=== PATIENT | female | born 1940 | race Caucasian/White ===

== ENCOUNTER 2024-10-13 12:00 | Emergency (ER) | payer MEDICARE, OTHER, SELFPAY ==
[2024-10-13 12:03] VITALS: BP 119/57
[2024-10-13 12:26] LABS: % Basophils 0.2 % (0-2); % Eosinophils 0.1 % (0-6); % Immature Granulocytes 0.3 % (0-0.5); % Lymphocytes 7.4 % (20.5-51.1); % Monocytes 6.9 % (1.7-9.3); % Neutrophils 85.1 % (42.2-75.2); Absolute Lymphocytes 1.1 10^3/uL (1.2-3.4); Absolute Monocytes 1.1 10^3/uL (0.1-0.6); Absolute Neutrophils 13.2 10^3/uL (1.4-6.5); Hematocrit 41.8 % (37.0-47.0); Hemoglobin 14.3 g/dL (12.0-16.0); Mean Corp Hgb Conc. 34.2 g/dL (33.0-37.0); Mean Corpuscular Hgb 31.6 pg (27.0-31.0); Mean Corpuscular Volume 92.5 fL (81.0-99.0); Nucleated Red Blood Cells % 0 %; Platelet Count 398 10^3/uL (130-400); Red Blood Cell Count 4.52 10^6/uL (4.20-5.40); Red Cell Dist. Width 14.2 % (11.5-14.5); White Blood Cell Count 15.5 10^3/uL (4.8-10.8)
[2024-10-13 12:31] LABS: INR 1.01; PT 13.6 Sec (11.4-14.6)
[2024-10-13 12:32] LABS: APTT 29.5 Sec (23.4-35.0)
[2024-10-13 12:33] LABS: ALT (SGPT) 18 U/L (0-35); AST (SGOT) 23 U/L (14-36); Albumin 4.4 g/dl (3.5-5.0); Alkaline Phosphatase 120 U/L (38-126); Blood Urea Nitrogen 32 mg/dl (7-17); Calcium 10.6 mg/dl (8.4-10.2); Carbon Dioxide 28 mmol/L (22-30); Chloride 104 mmol/L (98-107); Glucose 153 mg/dl (70-99); Potassium 4.3 mmol/L (3.5-5.1); Sodium 140 mmol/L (135-145); Total Bilirubin 1.2 mg/dl (0.2-1.3); Total Protein 6.9 g/dl (6.3-8.2); eGFR > 60.00
--- NOTE | 2024-10-13 13:59 | ED.GENMED ---
History of Present Illness
General
Chief Complaint: Rectal Bleeding
Source: patient
Exam Limitations: none
Time Seen by Provider: 10/13/24 13:16
History of Present Illness
History of Present Illness:
84-year-old female presents complaining of lower abdominal pain followed by constipation and straining and subsequently has had bright red blood per rectum since last evening. She has history of von Willebrand's. She is not anticoagulated. She
notes she is a been bleeding in between bowel movements. She feels slightly lightheaded and tired. No fever. Prior abdominal surgical history includes appendectomy. No other complaints at this time
Phy Exam
Physical Exam
Physical Exam:
General: Well-appearing female no acute respiratory distress
HEENT: Normocephalic atraumatic
Heart: Regular rate and rhythm
Lungs: Clear no wheeze
Abdomen is soft tender to the lower abdomen no guarding or rebound
Rectal exam: This was performed with female nurse Roxanna in the room as a loop tacker. There is no obvious hemorrhoids or fissures. The stool is red in color heme positive
Course
Orders/Labs/Results
Orders:
Orders
10/13/24 12:14
Type And Crossmatch [Type+Screen] Urgent
Complete Blood Count/With Diff Urgent
Comprehensive Metabolic Panel Urgent
PTT Urgent
Prothrombin Time Urgent
10/13/24 13:47
CT Abd/pelvis W Iv Cont Urgent
Comment:
Reason For Exam: rlq pain, constipation, bleeding
10/13/24 13:50
Diphenhydramine [Benadryl] 50 mg IV NOW STA
Hydrocortisone Sod Succinate [Solu-Cortef] 200 mg IV NOW STA
Abnormal Lab Results
10/13/24
12:14
WBC 15.5 H 10^3/uL
(4.8-10.8)
MCH 31.6 H pg
(27.0-31.0)
Absolute Neuts (auto) 13.2 H 10^3/uL
(1.4-6.5)
Absolute Lymphs (auto) 1.1 L 10^3/uL
(1.2-3.4)
Absolute Monos (auto) 1.1 H 10^3/uL
(0.1-0.6)
Neutrophils % 85.1 H %
(42.2-75.2)
Lymphocytes % 7.4 L %
(20.5-51.1)
BUN 32 H mg/dl
(7-17)
Glucose 153 H mg/dl
(70-99)
Calcium 10.6 H mg/dl
(8.4-10.2)
10/13/24 12:14
10/13/24 12:14
Vital Signs
Initial and Last Documented VS:
Initial Vital Signs
Temp Pulse Resp BP Pulse Ox
98.2 F 94 18 119/57 98
10/13/24 12:03 10/13/24 12:03 10/13/24 12:03 10/13/24 12:03 10/13/24 12:03
Last Documented Vital Signs
Temp Pulse Resp BP Pulse Ox
98.2 F 94 18 119/57 96
10/13/24 12:03 10/13/24 12:03 10/13/24 12:03 10/13/24 12:03 10/13/24 12:54
MDM/Problems Addressed
Differential Diagnosis Includes:
Bright red blood per rectum with lower abdominal pain and constipation. Consider lower GI bleeding diverticular versus hemorrhoidal versus fissure. Given blood loss consider anemia. She is tender on exam to the abdomen will order CT of the abdomen
*Critical Care Note
Total Time (30-74mins, 75-104mins- exclusive of procedures): Not Applicable
Update Note
Update Note:
CT demonstrates severe colitis of the descending colon. Patient has not had any further bowel movements here. Her vital signs remained stable. Hemoglobin is normal. White blood cell count is slightly elevated. No fever here. Had discussion
with patient and [id number] in the room regarding treatment options admission versus go home and antibiotics versus no antibiotics. They wish to go home which I think is reasonable recommend clear liquid diet. A prescription for Augmentin was
provided in the event her symptoms get worse. Return precautions were given otherwise. Will discharge
ED Attending Note
-
Portions of this chart may have been created with voice recognition software.� Occasional wrong word or��sound alike� substitutions may have occurred due to the inherent limitations of voice recognition software.
Discharge Plan
Departure
Patient Disposition: Home (Routine Discharge)
Date of Disposition: 10/13/24
Time of Disposition: 16:29
Patient with high blood pressure during this ER visit?: No
Discharge Problem:
Colitis
Instructions: Colitis
Prescriptions:
New
amoxicillin-pot clavulanate 875-125 mg tablet
1 tab PO BID Qty: 14 0RF
Referrals:
JOSETTE SINGLETON [Other]
Activity Restrictions/Additional Instructions:
Drink plenty clear liquids. Use Tylenol if needed for pain. Please return here for increasing pain fever vomiting or other concerning findings. A prescription for antibiotics was prescribed.
Interventions
Interventions:
*Risk Screen - Suicide Last Done: 10/13/24 12:03
*General Assessment Last Done: 10/13/24 12:03
*Neglect/Abuse Screening Last Done: 10/13/24 12:54
*ED- Fall Risk Assessment Last Done: 10/13/24 12:54
*ED COVID-19 Vaccine History Last Done: 10/13/24 12:54
EA-Knaxxu-Rwzxacouox Assessment Last Done: 10/13/24 12:54
ED- Cardiac Assessment Last Done: 10/13/24 12:54
ED- Pulmonary Assessment Last Done: 10/13/24 12:54
Discharge Date and Time
Print Language: ARMENIAN
[2024-10-13] MEDS: BENADRYL 50 MG IV (14:02)
[2024-10-13] MEDS: SOLU-CORTEF 200 MG IV (14:02)
== END 2024-10-13 17:17 | disposition home or self-care (01) ==
LOC: EMR 12:00
PROVIDERS: EMERGENCY PHYSICIAN Student in an Organized Health Care Education/Training Program
DX: K52.9 Noninfective gastroenteritis and colitis, unspecified (principal); K59.00 Constipation, unspecified; D68.00 Von Willebrand disease, unspecified
CPT/HCPCS: 99284; 96374; 96375; 74177; 80053; 85025; 85610; 85730; 86850; 86900; 86901; Q9967

== ENCOUNTER 2024-10-16 17:54 | Inpatient (IN) | payer MEDICARE, OTHER, SELFPAY ==
[2024-10-16] VITALS (10 sets, daily range): BP systolic 112–184; BP diastolic 60–80; BMI 25.6
[2024-10-16 12:27] LABS: % Basophils 0.3 % (0-2); % Eosinophils 1.2 % (0-6); % Immature Granulocytes 0.2 % (0-0.5); % Lymphocytes 13.8 % (20.5-51.1); % Monocytes 9.8 % (1.7-9.3); % Neutrophils 74.7 % (42.2-75.2); Absolute Eosinophils 0.1 10^3/uL (0-0.7); Absolute Lymphocytes 1.2 10^3/uL (1.2-3.4); Absolute Monocytes 0.9 10^3/uL (0.1-0.6); Absolute Neutrophils 6.7 10^3/uL (1.4-6.5); Hematocrit 40.9 % (37.0-47.0); Hemoglobin 13.7 g/dL (12.0-16.0); Mean Corp Hgb Conc. 33.5 g/dL (33.0-37.0); Mean Corpuscular Hgb 31.3 pg (27.0-31.0); Mean Corpuscular Volume 93.4 fL (81.0-99.0); Mean Platelet Volume 9.2 fL (7.4-10.4); Nucleated Red Blood Cells % 0 %; Platelet Count 370 10^3/uL (130-400); Red Blood Cell Count 4.38 10^6/uL (4.20-5.40); Red Cell Dist. Width 13.7 % (11.5-14.5); White Blood Cell Count 8.9 10^3/uL (4.8-10.8)
[2024-10-16 12:38] LABS: ALT (SGPT) 16 U/L (0-35); AST (SGOT) 19 U/L (14-36); Albumin 4.2 g/dl (3.5-5.0); Alkaline Phosphatase 111 U/L (38-126); Blood Urea Nitrogen 19 mg/dl (7-17); Calcium 10.1 mg/dl (8.4-10.2); Carbon Dioxide 29 mmol/L (22-30); Chloride 106 mmol/L (98-107); Glucose 145 mg/dl (70-99); Potassium 4.1 mmol/L (3.5-5.1); Sodium 141 mmol/L (135-145); Total Bilirubin 0.6 mg/dl (0.2-1.3); Total Protein 6.6 g/dl (6.3-8.2); eGFR > 60.00
[2024-10-16 12:40] LABS: APTT 29.5 Sec (23.4-35.0); INR 1.01; PT 13.8 Sec (11.4-14.6)
--- NOTE | 2024-10-16 15:27 | ED.GENMED ---
History of Present Illness
General
Chief Complaint: Rectal Bleeding
Source: patient, records, family, previous radiology exam and previous hospital records
Exam Limitations: none
Time Seen by Provider: 10/16/24 15:08
Nursing documentation reviewed up to this point in time: agreed with
History of Present Illness
History of Present Illness:
84 female returns with abdominal pain bloody stool seen here few days ago diagnosed with colitis offered admission she preferred to go home given a prescription for antibiotics to take if she had fever she did have fever associated take them she has
von Willebrand's type I nondrinker non-smoker she is visiting from [place] pain is worsened over the past couple days nausea not eating or drinking much,
Past History
Past History
ED Past Medical History: Other (Von Willebrand's type I)
ED Past Surgical History: Appendectomy and Gynecological
Social History
Tobacco: Non-smoker
Alcohol: None
Drug: None
Living: with family
Employment: Retired
Review of Systems
Review of Systems
All Other Systems: Not applicable
Constitutional: Denies fatigue or chills
EENT: Reports no symptoms
Respiratory: Reports no symptoms
Cardiac: Reports no symptoms
ABD/GI: Reports abdominal pain, nausea and bloody stools
: Reports no symptoms
Skin: Reports no symptoms
Neurological: Reports weakness
Phy Exam
Physical Exam
Physical Exam:
Physical Exam
General: 84 female looks uncomfortable but nontoxic
Neck: Dry lips
Heart: s1/s2 regular rate and rhythm, no murmur. equal radial pulses.
Lungs: no acute respiratory distress. clear bilaterally
Abdomen: Tender left greater than right lower
Neuro: alert and oriented. no focal neurological deficits
Skin: no rash
Psychiatric: well kept. interactive and cooperative
Extremities: no edema.
Course
Orders/Labs/Results
Orders:
Orders
10/16/24 12:09
Complete Blood Count/With Diff Urgent
Comprehensive Metabolic Panel Urgent
PTT Urgent
Prothrombin Time Urgent
10/16/24 15:25
STOOL [C difficile Antigen & Toxins] Urgent
ELANA Source: Feces/Stool
Specimen Description:
Stool Culture Urgent
ELANA Source: Feces/Stool
Specimen Description:
0.9% Sodium Chloride 1000 ml [Nss] 1,000 ml IV BOLUS
HYDROmorphone [Dilaudid] 0.5 mg IV NOW STA
Ondansetron Injectable [Zofran] 4 mg IV NOW STA
10/16/24 15:32
Electrocardiogram (*1) Urgent
Reason for Study: Abdominal Pain
EKG- Treatment ONCE
10/16/24 15:37
CT Abd/pelvis Wo Iv Cont Urgent
Comment:
Reason For Exam: pain
10/16/24 16:49
MetroNIDAZOLE 500 MG/100 ML [Flagyl 500 mg] 100 ml IV NOW
Abnormal Lab Results
10/16/24
12:09
MCH 31.3 H pg
(27.0-31.0)
Absolute Neuts (auto) 6.7 H 10^3/uL
(1.4-6.5)
Absolute Monos (auto) 0.9 H 10^3/uL
(0.1-0.6)
Lymphocytes % 13.8 L %
(20.5-51.1)
Monocytes % 9.8 H %
(1.7-9.3)
BUN 19 H mg/dl
(7-17)
Glucose 145 H mg/dl
(70-99)
10/16/24 12:09
10/16/24 12:09
Vital Signs
Initial and Last Documented VS:
Initial Vital Signs
Temp Pulse Resp BP Pulse Ox
98.4 F 82 16 151/61 98
10/16/24 12:01 10/16/24 12:01 10/16/24 12:01 10/16/24 12:01 10/16/24 12:01
Last Documented Vital Signs
Temp Pulse Resp BP Pulse Ox
98.4 F 79 13 160/76 97
10/16/24 12:01 10/16/24 16:45 10/16/24 16:45 10/16/24 16:41 10/16/24 16:45
MDM/Problems Addressed
Differential Diagnosis Includes:
Infectious colitis diverticulitis diverticulosis ischemic colitis perforated bowel
MDM/Problems Addressed:
Abdominal pain
Chronic conditions affecting care:
Von Willebrand
Chronic conditions affecting care: Previous abdomnial surgery
Acute Exacerbation and/or Progression of Chronic Illness:
Von Willebrand
Acute Exacerbation and/or Progression of Chronic Illness: Previous abdomnial surgery
*Radiology
Radiology exam reviewed: radiology read reviewed
*Pulse Oximetry
Patient hypoxic: no
*EKG
Interpreted by ED Provider?: Yes
Interpretation: abnormal
Comparison EKG: no comparison EKG present
Heart Rate: 78
Rate: normal
Ischemia: non-specific ST changes
*Green Chain Operator Interpretation
Rate: normal
Interpretation: normal
Heart Rate: 78
Rhythm: sinus
*Critical Care Note
Total Time (30-74mins, 75-104mins- exclusive of procedures): Not Applicable
Data Reviewed
Review of Other/Old Records Reveals: Labs, Records and Radiology Studies
Source: patient and family
Update Note
Update Note:
Update second visit worsening symptoms, labs recently normal does have von Willebrand's she is elderly, will check stool cultures, repeat her CT low threshold to admit
ED Attending Note
-
Portions of this chart may have been created with voice recognition software.� Occasional wrong word or��sound alike� substitutions may have occurred due to the inherent limitations of voice recognition software.
Discharge Plan
Departure
Patient Disposition: Admit
Date of Disposition: 10/16/24
Time of Disposition: 16:51
Admit to: Med/Surg
Presentation/result/management discussed w/ accepting MD/DO: Hospitalist
Patient with high blood pressure during this ER visit?: No
Condition: Fair
Discharge Problem:
Colitis
Prescriptions:
No Action
amoxicillin-pot clavulanate 875-125 mg tablet
1 tab PO BID Qty: 14 0RF
Interventions
Interventions:
*Risk Screen - Suicide Last Done: 10/16/24 12:01
*General Assessment Last Done: 10/16/24 14:47
*Neglect/Abuse Screening Last Done: 10/16/24 12:01
*ED- Fall Risk Assessment Last Done: 10/16/24 14:37
*ED COVID-19 Vaccine History Last Done: 10/16/24 14:37
EZ-Nmkweu-Iaafcwhfso Assessment Last Done: 10/16/24 14:42
ED- Cardiac Assessment Last Done: 10/16/24 14:41
ED- Pulmonary Assessment Last Done: 10/16/24 14:41
Discharge Date and Time
Print Language: CHILEAN
[2024-10-16] MEDS: ZOFRAN 4 MG IV (16:32)
[2024-10-16] MEDS: NSS 1000 IV (16:32)
[2024-10-16] MEDS: DILAUDID 0.5 MG IV (16:33)
[2024-10-16] MEDS: ZOSYN 50 IV (17:21)
--- NOTE | 2024-10-16 17:36 | HPS.HSE ---
Family Physician
-
Family Physician: PHYSICIAN PRIVATE
Chief Complaint
-
Abdominal pain, bloody stool
History of Present Illness
84-year-old female with past medical history of von Willebrand's disease, hypertension, hyperlipidemia, GERD, hypothyroidism, parathyroidectomy, appendectomy now presenting again for abdominal pain, associated bloody stool. Patient was seen on 10/13
for abdominal pain, diagnosed with colitis and discharged with option of taking antibiotics if spikes temperature gets worse. She never took antibiotics due to no fever. Today abdominal pain continued with notable bloody stool. Hemoglobin
remained stable, white count trending down. Imaging with slightly improved thickening of the wall of the descending colon. Blood pressure 160/76, afebrile, pulse 79. Patient had moderate tenderness to palpation of the lower abdomen.
Medical History
Past Medical History
Past Medical History: Reports Other ( von Willebrand's disease, hypertension, hyperlipidemia, GERD, hypothyroidism, parathyroidectomy, appendectomy)
Additional Past Medical History:
von Willebrand's disease, hypertension, hyperlipidemia, GERD, hypothyroidism, parathyroidectomy, appendectomy
Past Surgical History: Reports Appendectomy and Other (Parathyroidectomy)
Social History
Tobacco: Non-smoker
Alcohol: None
Drug: None
Family History
Family History: Not pertinent
Allergies / Home Medications
Allergies reflects when Allergies were last updated in [employer].
Home Medications with original date entered in [employer]
Allergy/Medication List:
Allergies
Allergy/AdvReac Type Severity Reaction Status Date / Time
Iodinated Contrast Media Allergy Hives Verified 10/16/24 12:01
prochlorperazine Allergy Unknown Verified 10/16/24 12:01
[From Compazine]
shellfish derived Allergy Unknown Verified 10/16/24 12:01
Home Medications
amlodipine 5 mg tablet 5 mg PO DAILY 10/16/24
levothyroxine 75 mcg tablet 75 mcg PO DAILY 10/16/24
melatonin 25 mg PO QHS 10/16/24
omeprazole 40 mg capsule,delayed release 40 mg PO BID 10/16/24
rosuvastatin 10 mg tablet (Crestor) 10 mg PO DAILY 10/16/24
temazepam 30 mg capsule 30 mg PO HS 10/16/24
valsartan 320 mg tablet 320 mg PO DAILY 10/16/24
Review of Systems
-
History Source: Patient
A 12 point ROS was completed and negative except as noted: Yes
Physical Exam
Vital Signs
Vital Signs
Temp Pulse Resp BP Pulse Ox
98.4 F 79 13 160/76 97
10/16/24 12:01 10/16/24 16:45 10/16/24 16:45 10/16/24 16:41 10/16/24 16:45
Physical Exam
General: Well Developed, Well Nourished and No Apparent Distress
HEENT: NormoCephalic
Respiratory: Clear
Cardiac: S1/S2 and Regular Rhythm
GI: Tender (Tender left greater than right lower)
Musculoskeletal: No Clubbing
Skin: Warm and Dry
Neuro: Awake, Alert, Oriented and AO x 3
Hematologic/Lymphatic: No Lymphadenopathy
Psych: Calm
Laboratory Results
-
10/16/24 12:09
10/16/24 12:09
Laboratory Results
PT 13.8 Sec (11.4-14.6) 10/16/24 12:09
INR 1.01 10/16/24 12:09
APTT 29.5 Sec (23.4-35.0) 10/16/24 12:09
Total Bilirubin 0.6 mg/dl (0.2-1.3) 10/16/24 12:09
AST 19 U/L (14-36) 10/16/24 12:09
ALT 16 U/L (0-35) 10/16/24 12:09
Alkaline Phosphatase 111 U/L (38-126) 10/16/24 12:09
Data Reviewed
-
CT Scan: Report Reviewed by me
Lab Data: Labs Reviewed by me
Impression/Plan
-
IMPRESSION:
84-year-old female with past medical history of von Willebrand's disease, appendectomy now presenting again for abdominal pain, associated bloody stool. Admitted for colitis.
PLAN:
#Colitis
� Appears to already be improving as seen with imaging as well as leukocytosis
-start ceftriaxone and flagyl
-Stool cultures, yersinia
-i suspect blood stool 2/2 to von Willebrand's factor deficiency and high risk for bleeding
�Okay for clears
� Pain control, antiemetics, supportive care
� IV fluids
#Bloody stools
� Suspect secondary colitis, higher susceptibility for bleeding due to von Willebrand's deficiency
� Monitor with antibiotics
#Hypertension
#Hyperlipidemia
#Hypothyroidism
#GERD
� Continue home regimen
#DVT prophylaxis
� SCDs
--- NOTE | 2024-10-16 22:30 | PTCARENOTE ---
Pt arrived onto floor @2230. Pt AAOx3 and a rod puller and coiler to the bed. Pt with no complaints of SOB at this time. Pt oriented to room and call stone; will continue to monitor
[2024-10-16] MEDS: LR 1000 IV (22:49)
[2024-10-16] MEDS: RESTORIL 30 MG PO (22:49)
[2024-10-16] MEDS: MELATONIN 3 MG PO (22:50)
[2024-10-16] MEDS: STERILE WATER FOR INJECTION 10 ML IV (22:58)
[2024-10-16] MEDS: ROCEPHIN 1000 MG IV (22:58)
[2024-10-17] MEDS: MORPHINE SULFATE 2 MG IV ×2 (04:09→09:40)
[2024-10-17] MEDS: FLAGYL 500 MG 100 IV ×2 (05:04→17:06)
[2024-10-17] MEDS: SYNTHROID 75 MCG PO (05:04)
[2024-10-17 05:53] VITALS: BMI 40.1
[2024-10-17 07:30] VITALS: BP 147/58
[2024-10-17 08:05] LABS: Hematocrit 36.7 % (37.0-47.0); Hemoglobin 11.9 g/dL (12.0-16.0); Mean Corp Hgb Conc. 32.4 g/dL (33.0-37.0); Mean Corpuscular Hgb 30.2 pg (27.0-31.0); Mean Corpuscular Volume 93.1 fL (81.0-99.0); Mean Platelet Volume 9.3 fL (7.4-10.4); Platelet Count 309 10^3/uL (130-400); Red Blood Cell Count 3.94 10^6/uL (4.20-5.40); Red Cell Dist. Width 13.7 % (11.5-14.5)
[2024-10-17] MEDS: CRESTOR 10 MG PO (08:13)
[2024-10-17] MEDS: PROTONIX 40 MG PO (08:13)
[2024-10-17] MEDS: NORVASC 5 MG PO (08:14)
[2024-10-17 08:40] LABS: ALT (SGPT) 13 U/L (0-35); AST (SGOT) 17 U/L (14-36); Albumin 3.3 g/dl (3.5-5.0); Alkaline Phosphatase 109 U/L (38-126); Blood Urea Nitrogen 11 mg/dl (7-17); Calcium 9.5 mg/dl (8.4-10.2); Carbon Dioxide 27 mmol/L (22-30); Chloride 111 mmol/L (98-107); Estimated Creatinine Clearance 70 ml/min; Glucose 106 mg/dl (70-99); Magnesium 1.8 mg/dl (1.6-2.3); Potassium 3.9 mmol/L (3.5-5.1); Sodium 143 mmol/L (135-145); Total Bilirubin 0.5 mg/dl (0.2-1.3); Total Protein 5.4 g/dl (6.3-8.2); eGFR > 60.00
--- NOTE | 2024-10-17 11:27 | CM ---
Chart reviewed and met with pt at bedside. Per pt, recently broke her L leg, will be in [place] for 10 weeks. Currently staying with her son in multiple story home, [address]. Lives in [place], 1 story apartment no [address]. Plans to return there as soon as
possible.
PCP: Dr Madeline Leon
Local Pharmacy: [facility], prescription coverage [facility]
Plan: Return home to son's house when medically stable.
--- NOTE | 2024-10-17 14:04 | W.PN.HOSP.TC ---
Today's Communication/Plan
-
abx
monitor bms, Hgb
Assessment / Plan
Assessment / Plan
Physical Exam
General: Well Developed, Well Nourished and No Apparent Distress
HEENT: NormoCephalic
Respiratory: Clear
Cardiac: S1/S2 and Regular Rhythm
GI: Tender (Tender left greater than right lower)
Musculoskeletal: No Clubbing
Skin: Warm and Dry
Neuro: Awake, Alert, Oriented and AO x 3
Hematologic/Lymphatic: No Lymphadenopathy
Psych: Calm
84-year-old female with past medical history of von Willebrand's disease, appendectomy now presenting again for abdominal pain, associated bloody stool. Admitted for colitis.
PLAN:
#Colitis
� Appears to already be improving as seen with imaging as well as leukocytosis
-start ceftriaxone and flagyl
-Stool cultures, yersinia
-i suspect blood stool 2/2 to von Willebrand's factor deficiency and high risk for bleeding
�Okay for clears
� Pain control, antiemetics, supportive care
� IV fluids
#Acute Anemia, possible blood loss v hemodilution - monitor
#Bloody stools
� Suspect secondary colitis, higher susceptibility for bleeding due to von Willebrand's deficiency
� Monitor with antibiotics
#Hypertension
#Hyperlipidemia
#Hypothyroidism
#GERD
� Continue home regimen
#DVT prophylaxis
� SCDs
Anticipated Discharge: 24 - 48 hours
Subjective/Interval History
-
Date of Service: October 17, 2024
still with abd pain, no further bloody bms
Objective Data
-
Labs:
Laboratory Results
10/17/24
07:00
WBC 7.0
Hgb 11.9 L
Hct 36.7 L
Plt Count 309
Sodium 143
Potassium 3.9
Chloride 111 H
Carbon Dioxide 27
BUN 11
Creatinine 0.7
Glucose 106 H
Calcium 9.5
Total Bilirubin 0.5
AST 17
ALT 13
Alkaline Phosphatase 109
Vital Signs:
Vital Signs
Temp Pulse Resp BP Pulse Ox
97.6 F 68 18 147/58 98
10/17/24 07:30 10/17/24 07:30 10/17/24 07:30 10/17/24 07:30 10/17/24 08:00
Review of Systems
-
History Source: Patient
All other systems: Not reviewed unless documented
Data Reviewed
-
CT Scan: Report Reviewed by me
Labs: Labs Reviewed by me
[2024-10-17] MEDS: LR 1000 IV (14:17)
[2024-10-17 15:00] VITALS: BP 165/78
[2024-10-17 16:11] VITALS: BP 165/78
[2024-10-17] MEDS: MELATONIN 3 MG PO (21:08)
[2024-10-17] MEDS: RESTORIL 30 MG PO (21:08)
[2024-10-17 22:52] VITALS: BP 141/71
[2024-10-18] MEDS: ROCEPHIN 1000 MG IV ×2 (00:11→23:00)
[2024-10-18] MEDS: STERILE WATER FOR INJECTION 10 ML IV ×2 (00:12→23:01)
[2024-10-18] MEDS: LR 1000 IV ×2 (05:44→21:02)
[2024-10-18] MEDS: SYNTHROID 75 MCG PO (05:45)
[2024-10-18] MEDS: FLAGYL 500 MG 100 IV ×2 (05:45→17:18)
[2024-10-18 07:30] VITALS: BP 145/66
[2024-10-18 08:40] LABS: Hematocrit 35.7 % (37.0-47.0); Hemoglobin 11.7 g/dL (12.0-16.0); Mean Corp Hgb Conc. 32.8 g/dL (33.0-37.0); Mean Corpuscular Hgb 30.7 pg (27.0-31.0); Mean Corpuscular Volume 93.7 fL (81.0-99.0); Mean Platelet Volume 9.3 fL (7.4-10.4); Platelet Count 318 10^3/uL (130-400); Red Blood Cell Count 3.81 10^6/uL (4.20-5.40); Red Cell Dist. Width 13.7 % (11.5-14.5); White Blood Cell Count 7.3 10^3/uL (4.8-10.8)
[2024-10-18] MEDS: CRESTOR 10 MG PO (08:42)
[2024-10-18] MEDS: PROTONIX 40 MG PO (08:42)
[2024-10-18] MEDS: NORVASC 5 MG PO (08:42)
[2024-10-18 08:50] VITALS: BMI 24.3
[2024-10-18 10:11] LABS: ALT (SGPT) 12 U/L (0-35); AST (SGOT) 16 U/L (14-36); Albumin 3.3 g/dl (3.5-5.0); Alkaline Phosphatase 105 U/L (38-126); Blood Urea Nitrogen 5 mg/dl (7-17); Calcium 9.7 mg/dl (8.4-10.2); Carbon Dioxide 31 mmol/L (22-30); Chloride 107 mmol/L (98-107); Estimated Creatinine Clearance 50 ml/min; Glucose 114 mg/dl (70-99); Potassium 3.8 mmol/L (3.5-5.1); Sodium 143 mmol/L (135-145); Total Bilirubin 0.5 mg/dl (0.2-1.3); Total Protein 5.6 g/dl (6.3-8.2); eGFR > 60.00
--- NOTE | 2024-10-18 11:03 | CM ---
CM reviewed chart, patient seen bedside. Patient denies needs upon discharge, reports likely discharge tomorrow. Patient remains on IV antibiotics. CM will continue to follow for all discharge planning needs.
Plan; return home with son when stable
--- NOTE | 2024-10-18 13:50 | W.PN.HOSP.TC ---
Today's Communication/Plan
-
ADAT
Abx
monitor hgb
Assessment / Plan
Assessment / Plan
Physical Exam
General: Well Developed, Well Nourished and No Apparent Distress
HEENT: NormoCephalic
Respiratory: Clear
Cardiac: S1/S2 and Regular Rhythm
GI: Tender (Tender left greater than right lower)
Musculoskeletal: No Clubbing
Skin: Warm and Dry
Neuro: Awake, Alert, Oriented and AO x 3
Hematologic/Lymphatic: No Lymphadenopathy
Psych: Calm
84-year-old female with past medical history of von Willebrand's disease, appendectomy now presenting again for abdominal pain, associated bloody stool. Admitted for colitis.
PLAN:
#Colitis
� Appears to already be improving as seen with imaging as well as leukocytosis
-ceftriaxone and flagyl
-Stool cultures
-i suspect blood stool 2/2 to von Willebrand's factor deficiency and high risk for bleeding
�ADAT
� Pain control, antiemetics, supportive care
� can DC IV fluids - tolerating diet
#Acute Anemia, possible blood loss v hemodilution - monitor
#Bloody stools
� Suspect secondary colitis, higher susceptibility for bleeding due to von Willebrand's deficiency
� Monitor with antibiotics
#Hypertension
#Hyperlipidemia
#Hypothyroidism
#GERD
� Continue home regimen
#DVT prophylaxis
� SCDs, monitor hgb
Anticipated Discharge: 24 - 48 hours
Subjective/Interval History
-
Date of Service: October 18, 2024
pain improving, small bm today, no blood
Objective Data
-
Labs:
Laboratory Results
10/18/24
07:12
WBC 7.3
Hgb 11.7 L
Hct 35.7 L
Plt Count 318
Sodium 143
Potassium 3.8
Chloride 107
Carbon Dioxide 31 H
BUN 5 L
Creatinine 0.7
Glucose 114 H
Calcium 9.7
Total Bilirubin 0.5
AST 16
ALT 12
Alkaline Phosphatase 105
Vital Signs:
Vital Signs
Temp Pulse Resp BP Pulse Ox
98.5 F 73 20 145/66 97
10/18/24 07:30 10/18/24 07:30 10/18/24 07:30 10/18/24 07:30 10/18/24 08:00
I&O
10/17/24 10/18/24 10/19/24
06:59 06:59 06:59
Intake Total 1999
Balance 1999
Review of Systems
-
History Source: Patient
All other systems: Not reviewed unless documented
Data Reviewed
-
CT Scan: Report Reviewed by me
Labs: Labs Reviewed by me
[2024-10-18 15:00] VITALS: BP 165/71
[2024-10-18] MEDS: MORPHINE SULFATE 2 MG IV (15:48)
[2024-10-18] MEDS: RESTORIL 30 MG PO (21:02)
[2024-10-18] MEDS: MELATONIN 3 MG PO (21:02)
[2024-10-18] MEDS: FLUSH (NSS) 1 FLUSH IV (23:00)
[2024-10-18 23:32] VITALS: BP 136/71
[2024-10-19] MEDS: FLUSH (NSS) 1 FLUSH IV ×3 (00:05→23:03)
[2024-10-19] MEDS: FLAGYL 500 MG 100 IV ×2 (06:21→18:38)
[2024-10-19] MEDS: SYNTHROID 75 MCG PO (06:21)
[2024-10-19 07:00] VITALS: BP 137/69
[2024-10-19 07:56] LABS: Hematocrit 36.4 % (37.0-47.0); Mean Corpuscular Hgb 30.5 pg (27.0-31.0); Mean Corpuscular Volume 92.6 fL (81.0-99.0); Mean Platelet Volume 9.2 fL (7.4-10.4); Platelet Count 348 10^3/uL (130-400); Red Blood Cell Count 3.93 10^6/uL (4.20-5.40); Red Cell Dist. Width 13.4 % (11.5-14.5); White Blood Cell Count 7.7 10^3/uL (4.8-10.8)
[2024-10-19 08:47] LABS: ALT (SGPT) 11 U/L (0-35); AST (SGOT) 17 U/L (14-36); Albumin 3.5 g/dl (3.5-5.0); Alkaline Phosphatase 106 U/L (38-126); Blood Urea Nitrogen 5 mg/dl (7-17); Calcium 9.9 mg/dl (8.4-10.2); Carbon Dioxide 31 mmol/L (22-30); Chloride 107 mmol/L (98-107); Estimated Creatinine Clearance 50 ml/min; Glucose 114 mg/dl (70-99); Potassium 4.1 mmol/L (3.5-5.1); Sodium 142 mmol/L (135-145); Total Bilirubin 0.5 mg/dl (0.2-1.3); Total Protein 5.8 g/dl (6.3-8.2); eGFR > 60.00
[2024-10-19] MEDS: CRESTOR 10 MG PO (09:08)
[2024-10-19] MEDS: NORVASC 5 MG PO (09:09)
[2024-10-19] MEDS: PROTONIX 40 MG PO (09:10)
--- NOTE | 2024-10-19 12:26 | W.PN.HOSP.TC ---
Today's Communication/Plan
-
ADAT
pain control
Assessment / Plan
Assessment / Plan
Physical Exam
General: Well Developed, Well Nourished and No Apparent Distress
HEENT: NormoCephalic
Respiratory: Clear
Cardiac: S1/S2 and Regular Rhythm
GI: Tender (Tender left greater than right lower)
Musculoskeletal: No Clubbing
Skin: Warm and Dry
Neuro: Awake, Alert, Oriented and AO x 3
Hematologic/Lymphatic: No Lymphadenopathy
Psych: Calm
84-year-old female with past medical history of von Willebrand's disease, appendectomy now presenting again for abdominal pain, associated bloody stool. Admitted for colitis.
PLAN:
#Colitis
� Appears to already be improving as seen with imaging as well as leukocytosis
-ceftriaxone and flagyl
-no further diarrhea
-i suspect blood stool 2/2 to von Willebrand's factor deficiency and high risk for bleeding
�ADAT - CLD for today as could not tolerate FLD diet yesterday
� Pain control, antiemetics, supportive care
� can DC IV fluids - tolerating diet
#Acute Anemia, possible blood loss v hemodilution - monitor
#Bloody stools
� Suspect secondary colitis, higher susceptibility for bleeding due to von Willebrand's deficiency
� Monitor with antibiotics
-bun remains low - lowering suspicion of active gi bleed
#Hypertension
#Hyperlipidemia
#Hypothyroidism
#GERD
� Continue home regimen
#DVT prophylaxis
� SCDs, monitor hgb
Anticipated Discharge: 24 - 48 hours
Subjective/Interval History
-
Date of Service: October 19, 2024
pain better
Objective Data
-
Labs:
Laboratory Results
10/19/24
06:47
WBC 7.7
Hgb 12.0
Hct 36.4 L
Plt Count 348
Sodium 142
Potassium 4.1
Chloride 107
Carbon Dioxide 31 H
BUN 5 L
Creatinine 0.7
Glucose 114 H
Calcium 9.9
Total Bilirubin 0.5
AST 17
ALT 11
Alkaline Phosphatase 106
Vital Signs:
Vital Signs
Temp Pulse Resp BP Pulse Ox
98.2 F 81 20 137/69 97
10/19/24 07:00 10/19/24 07:00 10/19/24 07:00 10/19/24 07:00 10/19/24 07:00
I&O
10/18/24 10/19/24 10/20/24
06:59 06:59 06:59
Intake Total 1999 / 1999 600 / 600 30 / 30
Balance 2000 / 1999 600 / 600 30 / 30
Review of Systems
-
History Source: Patient
All other systems: Not reviewed unless documented
Data Reviewed
-
CT Scan: Report Reviewed by me
Labs: Labs Reviewed by me
[2024-10-19] MEDS: LR IV (12:40)
--- NOTE | 2024-10-19 13:17 | CM ---
CM reviewed chart, patient seen bedside, reports hopeful discharge over the weekend. Patient plan remains return to son's home locally, then return to home in [place]. IMM reviewed, signed, placed in chart. CM will continue to follow for all discharge
planning needs.
Plan; home with son when stable.
[2024-10-19 13:20] VITALS: BMI 24.3
[2024-10-19 15:00] VITALS: BP 168/83
[2024-10-19] MEDS: MORPHINE SULFATE 2 MG IV (17:03)
[2024-10-19] MEDS: FLUSH (NSS) 2 FLUSH IV (17:05)
[2024-10-19] MEDS: DILAUDID 0.5 MG IV (21:24)
[2024-10-19] MEDS: RESTORIL 30 MG PO (21:24)
[2024-10-19] MEDS: MELATONIN 3 MG PO (21:24)
[2024-10-19 22:49] VITALS: BP 137/61
[2024-10-19] MEDS: STERILE WATER FOR INJECTION 10 ML IV (23:04)
[2024-10-19] MEDS: ROCEPHIN 1000 MG IV (23:04)
[2024-10-20] MEDS: FLUSH (NSS) 1 FLUSH IV ×2 (00:05→18:24)
[2024-10-20] MEDS: FLAGYL 500 MG 100 IV ×2 (06:09→18:22)
[2024-10-20] MEDS: SYNTHROID 75 MCG PO (06:09)
[2024-10-20 07:13] LABS: Hematocrit 35.8 % (37.0-47.0); Hemoglobin 12.1 g/dL (12.0-16.0); Mean Corp Hgb Conc. 33.8 g/dL (33.0-37.0); Mean Corpuscular Hgb 30.9 pg (27.0-31.0); Mean Corpuscular Volume 91.6 fL (81.0-99.0); Mean Platelet Volume 9.1 fL (7.4-10.4); Platelet Count 363 10^3/uL (130-400); Red Blood Cell Count 3.91 10^6/uL (4.20-5.40); Red Cell Dist. Width 13.4 % (11.5-14.5); White Blood Cell Count 8.4 10^3/uL (4.8-10.8)
[2024-10-20 07:18] VITALS: BP 117/61
[2024-10-20 07:36] LABS: ALT (SGPT) 12 U/L (0-35); AST (SGOT) 16 U/L (14-36); Albumin 3.5 g/dl (3.5-5.0); Alkaline Phosphatase 103 U/L (38-126); Blood Urea Nitrogen 7 mg/dl (7-17); Calcium 9.8 mg/dl (8.4-10.2); Carbon Dioxide 29 mmol/L (22-30); Chloride 105 mmol/L (98-107); Estimated Creatinine Clearance 50 ml/min; Glucose 114 mg/dl (70-99); Potassium 3.9 mmol/L (3.5-5.1); Sodium 139 mmol/L (135-145); Total Bilirubin 0.5 mg/dl (0.2-1.3); Total Protein 5.9 g/dl (6.3-8.2); eGFR > 60.00
[2024-10-20] MEDS: NORVASC 5 MG PO (07:57)
[2024-10-20] MEDS: PROTONIX 40 MG PO (07:57)
[2024-10-20] MEDS: CRESTOR 10 MG PO (07:57)
[2024-10-20] MEDS: DILAUDID 0.5 MG IV ×2 (09:38→20:21)
[2024-10-20] MEDS: FLUSH (NSS) 2 FLUSH IV (09:39)
--- NOTE | 2024-10-20 12:52 | W.PN.HOSP.TC ---
Today's Communication/Plan
-
adat - fld
Assessment / Plan
Assessment / Plan
Physical Exam
General: Well Developed, Well Nourished and No Apparent Distress
HEENT: NormoCephalic
Respiratory: Clear
Cardiac: S1/S2 and Regular Rhythm
GI: Tender (Tender left greater than right lower) improved
Musculoskeletal: No Clubbing
Skin: Warm and Dry
Neuro: Awake, Alert, Oriented and AO x 3
Hematologic/Lymphatic: No Lymphadenopathy
Psych: Calm
84-year-old female with past medical history of von Willebrand's disease, appendectomy now presenting again for abdominal pain, associated bloody stool. Admitted for colitis.
PLAN:
#Colitis
� Appears to already be improving as seen with imaging as well as leukocytosis
-ceftriaxone and flagyl
-no further diarrhea
-i suspect blood stool 2/2 to von Willebrand's factor deficiency and high risk for bleeding
�ADAT -full liquid diet trial today
� Pain control, antiemetics, supportive care
� can DC IV fluids - tolerating diet
#Acute Anemia, possible blood loss v hemodilution - monitor
#Bloody stools
� Suspect secondary colitis, higher susceptibility for bleeding due to von Willebrand's deficiency
� Monitor with antibiotics
-bun remains low - lowering suspicion of active gi bleed
#Hypertension
#Hyperlipidemia
#Hypothyroidism
#GERD
� Continue home regimen
#DVT prophylaxis
� SCDs, monitor hgb
Anticipated Discharge: 24 - 48 hours
Subjective/Interval History
-
Date of Service: October 20, 2024
Improvement in lower abdominal tenderness, able to tolerate clear liquid diet
Objective Data
-
Labs:
Laboratory Results
10/20/24
06:10
WBC 8.4
Hgb 12.1
Hct 35.8 L
Plt Count 363
Sodium 139
Potassium 3.9
Chloride 105
Carbon Dioxide 29
BUN 7
Creatinine 0.7
Glucose 114 H
Calcium 9.8
Total Bilirubin 0.5
AST 16
ALT 12
Alkaline Phosphatase 103
Vital Signs:
Vital Signs
Temp Pulse Resp BP Pulse Ox
99.1 F 83 18 117/61 97
10/20/24 07:18 10/20/24 07:18 10/20/24 07:18 10/20/24 07:18 10/20/24 07:18
I&O
10/19/24 10/20/24 10/21/24
06:59 06:59 06:59
Intake Total 600 / 600 600 / 600
Balance 600 / 600 600 / 600
Review of Systems
-
History Source: Patient
All other systems: Not reviewed unless documented
Data Reviewed
-
CT Scan: Report Reviewed by me
Labs: Labs Reviewed by me
[2024-10-20 16:07] VITALS: BP 145/68
--- NOTE | 2024-10-20 16:11 | CM ---
Patient and daughter asking for equipment, and visiting nurses, patient will need PT/OT evaluations. Physician contacted.
Home when stable.
[2024-10-20] MEDS: MELATONIN 3 MG PO (21:13)
[2024-10-20] MEDS: RESTORIL 30 MG PO (21:13)
[2024-10-20 23:09] VITALS: BP 131/53
[2024-10-20] MEDS: FLUSH (NSS) IV ×2 (23:25→23:36)
[2024-10-20] MEDS: STERILE WATER FOR INJECTION 10 ML IV (23:27)
[2024-10-20] MEDS: ROCEPHIN 1000 MG IV (23:27)
[2024-10-21] MEDS: FLAGYL 500 MG 100 IV ×2 (05:42→19:07)
[2024-10-21] MEDS: SYNTHROID 75 MCG PO (05:42)
[2024-10-21 06:00] LABS: Hemoglobin 11.7 g/dL (12.0-16.0); Mean Corp Hgb Conc. 33.4 g/dL (33.0-37.0); Mean Corpuscular Hgb 30.6 pg (27.0-31.0); Mean Corpuscular Volume 91.6 fL (81.0-99.0); Mean Platelet Volume 9.1 fL (7.4-10.4); Platelet Count 337 10^3/uL (130-400); Red Blood Cell Count 3.82 10^6/uL (4.20-5.40); Red Cell Dist. Width 13.3 % (11.5-14.5)
[2024-10-21 06:25] LABS: Blood Urea Nitrogen 8 mg/dl (7-17); Calcium 9.6 mg/dl (8.4-10.2); Carbon Dioxide 30 mmol/L (22-30); Chloride 105 mmol/L (98-107); Estimated Creatinine Clearance 50 ml/min; Glucose 122 mg/dl (70-99); Potassium 3.8 mmol/L (3.5-5.1); Sodium 139 mmol/L (135-145); eGFR > 60.00
[2024-10-21 07:00] VITALS: BP 137/68
[2024-10-21] MEDS: PROTONIX 40 MG PO (08:48)
[2024-10-21] MEDS: NORVASC 5 MG PO (08:48)
[2024-10-21] MEDS: CRESTOR 10 MG PO (08:48)
[2024-10-21] MEDS: DILAUDID 0.5 MG IV (08:56)
--- NOTE | 2024-10-21 11:29 | CM ---
Addendum entered by Rhea Katz 10/21/24 11:33:
[facility]
[phone]

Original Note:
Chart reviewed and referral sent to [facility] visiting nurses, patient needs PT/OT evaluations to assist with discharge planning per patient she would like a commode at discharge, patient is sleeping in a recliner in home, has a transport chair that
she ordered.
Plan; Home with [facility] visiting nurses, patient needs PT/OT evaluation, and commode at discharge.
--- NOTE | 2024-10-21 12:18 | W.PN.HOSP.TC ---
Today's Communication/Plan
-
adv to LRD today
Assessment / Plan
Assessment / Plan
Physical Exam
General: Well Developed, Well Nourished and No Apparent Distress
HEENT: NormoCephalic
Respiratory: Clear
Cardiac: S1/S2 and Regular Rhythm
GI: Tender (Tender left greater than right lower) improved
Musculoskeletal: No Clubbing
Skin: Warm and Dry
Neuro: Awake, Alert, Oriented and AO x 3
Hematologic/Lymphatic: No Lymphadenopathy
Psych: Calm
84-year-old female with past medical history of von Willebrand's disease, appendectomy now presenting again for abdominal pain, associated bloody stool. Admitted for colitis.
PLAN:
#Colitis
� Appears to already be improving as seen with imaging as well as leukocytosis
-ceftriaxone and flagyl
-no further diarrhea
-i suspect blood stool 2/2 to von Willebrand's factor deficiency and high risk for bleeding
�ADAT - still with mild symptoms; anxious to adv diet; agreed to adv to LRD for dinner
� Pain control, antiemetics, supportive care
� can DC IV fluids - tolerating diet
#Acute Anemia, possible blood loss v hemodilution - monitor
#Bloody stools
� Suspect secondary colitis, higher susceptibility for bleeding due to von Willebrand's deficiency
� Monitor with antibiotics
-bun remains low - lowering suspicion of active gi bleed
#Hypertension
#Hyperlipidemia
#Hypothyroidism
#GERD
� Continue home regimen
#DVT prophylaxis
� SCDs, monitor hgb
Anticipated Discharge: Within 24 hours
Subjective/Interval History
-
Date of Service: October 21, 2024
improving
Objective Data
-
Labs:
Laboratory Results
10/21/24
04:53
WBC 8.0
Hgb 11.7 L
Hct 35.0 L
Plt Count 337
Sodium 139
Potassium 3.8
Chloride 105
Carbon Dioxide 30
BUN 8
Creatinine 0.7
Glucose 122 H
Calcium 9.6
Vital Signs:
Vital Signs
Temp Pulse Resp BP Pulse Ox
98.4 F 91 16 137/68 96
10/21/24 07:00 10/21/24 07:00 10/21/24 07:00 10/21/24 07:00 10/21/24 07:00
I&O
10/20/24 10/21/24 10/22/24
06:59 06:59 06:59
Intake Total 600 / 600 940 / 940
Balance 600 / 600 940 / 940
Review of Systems
-
History Source: Patient
All other systems: Not reviewed unless documented
Data Reviewed
-
CT Scan: Report Reviewed by me
Labs: Labs Reviewed by me
[2024-10-21] MEDS: DILAUDID 1 MG IV ×2 (14:18→20:19)
[2024-10-21 15:00] VITALS: BP 142/64
[2024-10-21] MEDS: MEDROL 32 MG PO (20:19)
[2024-10-21] MEDS: MELATONIN 3 MG PO (21:32)
[2024-10-21] MEDS: RESTORIL 30 MG PO (21:32)
[2024-10-21 22:55] VITALS: BP 130/66
[2024-10-21] MEDS: STERILE WATER FOR INJECTION 10 ML IV (23:34)
[2024-10-21] MEDS: FLUSH (NSS) IV (23:35)
[2024-10-21] MEDS: ROCEPHIN 1000 MG IV (23:35)
[2024-10-22] MEDS: FLUSH (NSS) IV ×3 (00:30→23:40)
[2024-10-22] MEDS: SYNTHROID 75 MCG PO (05:48)
[2024-10-22] MEDS: FLAGYL 500 MG 100 IV ×2 (05:48→17:48)
[2024-10-22] MEDS: OMNIPAQUE 50 ML PO (06:43)
[2024-10-22] MEDS: MEDROL 32 MG PO (06:44)
[2024-10-22 07:45] VITALS: BP 144/78
[2024-10-22 08:01] LABS: Blood Urea Nitrogen 8 mg/dl (7-17); Calcium 9.9 mg/dl (8.4-10.2); Carbon Dioxide 30 mmol/L (22-30); Chloride 101 mmol/L (98-107); Estimated Creatinine Clearance 59 ml/min; Glucose 187 mg/dl (70-99); Potassium 4.2 mmol/L (3.5-5.1); Sodium 138 mmol/L (135-145); eGFR > 60.00
[2024-10-22] MEDS: PROTONIX 40 MG PO (08:03)
[2024-10-22] MEDS: NORVASC 5 MG PO (08:03)
[2024-10-22 08:04] LABS: Hematocrit 37.7 % (37.0-47.0); Hemoglobin 12.7 g/dL (12.0-16.0); Mean Corp Hgb Conc. 33.7 g/dL (33.0-37.0); Mean Corpuscular Hgb 30.8 pg (27.0-31.0); Mean Corpuscular Volume 91.5 fL (81.0-99.0); Mean Platelet Volume 8.7 fL (7.4-10.4); Platelet Count 413 10^3/uL (130-400); Red Blood Cell Count 4.12 10^6/uL (4.20-5.40); Red Cell Dist. Width 13.2 % (11.5-14.5); White Blood Cell Count 9.7 10^3/uL (4.8-10.8)
[2024-10-22] MEDS: BENADRYL 50 MG IV (08:04)
[2024-10-22] MEDS: CRESTOR 10 MG PO (08:04)
[2024-10-22] MEDS: DILAUDID 1 MG IV ×2 (10:37→21:39)
--- NOTE | 2024-10-22 13:00 | W.PN.HOSP.TC ---
Addendum entered and electronically signed by Job Hennessy MD 10/22/24 13:02:
#4 cm simple right renal cysts and additional subcentimeter low-attenuation right renal lesion too small to characterize
MRI kidneys with PCP
Original Note:
Today's Communication/Plan
-
much improved pain
LRD
Assessment / Plan
Assessment / Plan
84yo F with PMHX of vW factor deficiency, hypothyroidism, GERD, HLD, HTN, anxiety, recent LLE Fx (currently NWB) came with 1-2 days of severe bilateral abdominal pain, CT showed severe colitis of the distending colon, negative for salmonella, formed
stool but with significant hematochezia, that later resolved.
A/P:
#Hematochesia
#Descending colitis
stool Cx neg
C.diff cancelled since formed stool
improving on Ceftriaxone/Flagyl
discussed with GI -patient will have outpatient visit arranged for eventual colonoscopy that has to be done in 6 weeks upon colitis resolution
#mild anemia
2/2 episode of hematochezia
Hgb 11.7-12.7 - no significant drop noted
#Reactive thrombocytosis
follow plt
#Fatty liver
cont statin
low fat diet
#Non-obstructing nephrolithiasis
Hydration encouraged
#recent LLE Fx
NWB x 6 weeks
#EssentiaL HTN
#HLD
#Hypothyroidism
#Anxiety D/O
cont home meds
DVT ppxSCDs
Full code
I have spent at least 58min reviewing chart, test results, communication with consultants and providing direct patient care
Anticipated Discharge: 24 - 48 hours
Subjective/Interval History
-
Date of Service: October 22, 2024
Objective Data
-
Labs:
Laboratory Results
10/22/24
07:08
WBC 9.7
Hgb 12.7
Hct 37.7
Plt Count 413 H D
Sodium 138
Potassium 4.2
Chloride 101
Carbon Dioxide 30
BUN 8
Creatinine 0.6
Glucose 187 H
Calcium 9.9
Vital Signs:
Vital Signs
Temp Pulse Resp BP Pulse Ox
97.5 F 89 18 144/78 99
10/22/24 07:45 10/22/24 07:45 10/22/24 07:45 10/22/24 07:45 10/22/24 07:45
I&O
10/21/24 10/22/24 10/23/24
06:59 06:59 06:59
Intake Total 940 / 940 1060 / 1060
Balance 940 / 940 1060 / 1060
Review of Systems
-
History Source: Patient
All other systems: Reviewed and negative
Physical Exam
-
General: No Apparent Distress
HEENT: Normocephalic
Cardiac: Regular Rhythm
GI: Soft, Nondistended and Tender (b/l)
Skin: Warm
Neuro: Awake, Alert, Oriented and AO x 3
Psych: Calm
[2024-10-22 15:16] VITALS: BP 129/62
[2024-10-22] MEDS: RESTORIL 30 MG PO (21:35)
[2024-10-22] MEDS: MELATONIN 3 MG PO (21:35)
[2024-10-22] MEDS: SENOKOT-S 1 TABLET PO (21:40)
[2024-10-22 23:09] VITALS: BP 119/62
[2024-10-22] MEDS: STERILE WATER FOR INJECTION 10 ML IV (23:30)
[2024-10-22] MEDS: ROCEPHIN 1000 MG IV (23:31)
[2024-10-23] MEDS: FLAGYL 500 MG 100 IV (05:52)
[2024-10-23] MEDS: SYNTHROID 75 MCG PO (05:52)
[2024-10-23 07:31] VITALS: BP 116/65
[2024-10-23 07:34] LABS: Hematocrit 31.5 % (37.0-47.0); Hemoglobin 10.7 g/dL (12.0-16.0); Mean Corpuscular Hgb 30.9 pg (27.0-31.0); Platelet Count 393 10^3/uL (130-400); Red Blood Cell Count 3.46 10^6/uL (4.20-5.40); Red Cell Dist. Width 13.2 % (11.5-14.5); White Blood Cell Count 14.2 10^3/uL (4.8-10.8)
[2024-10-23] MEDS: NORVASC 5 MG PO (08:31)
[2024-10-23] MEDS: PROTONIX 40 MG PO (08:31)
[2024-10-23] MEDS: CRESTOR 10 MG PO (08:32)
--- NOTE | 2024-10-23 10:01 | W.PN.HOSP.TC ---
Addendum entered and electronically signed by Job Hennessy MD 10/23/24 10:38:
#leukocytosis
most likely after Steroids, as pain improving, no new fevers
Original Note:
Today's Communication/Plan
-
GI consult
repeat H&H
Assessment / Plan
Assessment / Plan
84yo F with PMHX of vW factor deficiency, hypothyroidism, GERD, HLD, HTN, anxiety, recent LLE Fx (currently NWB) came with 1-2 days of severe bilateral abdominal pain, CT showed severe colitis of the distending colon, negative for salmonella, formed
stool but with significant hematochezia, that later resolved. Tolerated food well. Communicated to GI who attempted to schedule patient for outpatient follow up for colonoscopy, however Hgb slightly dropped so pending inpatient eval
A/P:
#Hematochesia
#Descending colitis
stool Cx neg
C.diff cancelled since formed stool
improving on Ceftriaxone/Flagyl
GI consult
#mild anemia
2/2 episode of hematochezia
follow CBC
no over bleeding seen
cont PPI
#Reactive thrombocytosis
follow plt
#Fatty liver
cont statin
low fat diet
#Non-obstructing nephrolithiasis
Hydration encouraged
#recent LLE Fx
NWB x 6 weeks
#EssentiaL HTN
#HLD
#Hypothyroidism
#Anxiety D/O
cont home meds
DVT ppxSCDs
Full code
I have spent at least 38min reviewing chart, test results, communication with consultants and providing direct patient care
Anticipated Discharge: 24 - 48 hours
Subjective/Interval History
-
Date of Service: October 23, 2024
Objective Data
-
Labs:
Laboratory Results
10/23/24 10/23/24
06:54 09:59
WBC 14.2 H
Hgb 10.7 L Pending
Hct 31.5 L Pending
Plt Count 393
Vital Signs:
Vital Signs
Temp Pulse Resp BP Pulse Ox
97.7 F 78 18 116/65 98
10/23/24 07:31 10/23/24 07:31 10/23/24 07:31 10/23/24 07:31 10/23/24 07:31
I&O
10/22/24 10/23/24 10/24/24
06:59 06:59 06:59
Intake Total 1060 / 1060 340 / 340
Balance 1060 / 1060 340 / 340
Review of Systems
-
History Source: Patient
All other systems: Reviewed and negative
Physical Exam
-
General: No Apparent Distress
HEENT: Normocephalic
GI: Soft, Nontender and Nondistended
Skin: Warm
Neuro: Awake, Alert, Oriented and AO x 3
Psych: Calm
[2024-10-23 10:28] LABS: Hematocrit 34.3 % (37.0-47.0); Hemoglobin 11.5 g/dL (12.0-16.0)
--- NOTE | 2024-10-23 11:01 | CON.GI ---
Addendum entered and electronically signed by Lizbet Gray Do, MD 10/23/24 12:39:
I saw and examined the patient.
The DISTRIBUTION SUPERINTENDENT's note was reviewed and I agree with the note.
Comment: Elham is an 84yo W with h/o VWF and HTN who was admitted for rectal bleeding. She was visiting from [place] for surprise birthday alliance party. She tripped fell and had fracture of her foot recently. GI consulted for drop in Hbg. However
upon repeat Hbg today without transfusion it was same as 2 days prior. Her abd pain much improved. She is tolerating low residue diet. Vitals stable exam NTTP, NABS. Labs and imaging reviewed
Impression
- At this juncture repeat Hbg improved same compared to 2 days ago
- Abd pain also improved and she is tolerating diet
- Suspect ischemic colitis in setting of fall and fot fracture. Recommend completion of 10 days of oral abx
- Outpatient colonoscopy in 8wks which she prefers to do in [place]
- Advise to check BP daily at home she has BP cuff.
At this juncture GI will sign off please call for ?
Original Note:
Consultation
-
Date/Time Consultation Requested: 10/23/24 1015
Date/Time Consultation Performed: 10/23/24 1100
Requesting Provider: Job Hennessy MD
Performing Provider: MARIAH Molina, Lizbet Lowe MD
Reason for Consultation: colitis, rectal bleeding
Medical History
Chief Complaint / HPI
Chief Complaint: abdominal pain, rectal bleeding
History of Present Illness:
Pt is a 84yo with hx von Willebrand's type 1, colon polyps, GERD, HTN, hyperlipidemia, hypothyroidism, recent LLQ fx, appe, hysterectomy visiting from [place] with onset of rectal bleeding. She was seen in ER 10/13 WBC15,[address] a/p with IV
contrast only with noted severe colitis in descending colon . Pt discussed plan with possible admission preferred to be discharged with plan for antibiotics if symptoms worsened. She returned 10/16 with worsening pain and inability to eat.
Repeat CT without contrast with slight improvement on 10/16 and again repeat 07/25 with minimal residual colitis. Asked to see for further management.
In review with patient she admits to admission 2-3 years ago in [place] with rectal bleeding and low potassium. She did not recall colitis at that time. She now admits to pain up to 1210 now down to 10/06. Pain initially began over 1 week ago
with associated rectal bleeding. Bleeding has now stopped with brown stool today. She otherwise admits to chronic GERD on Omeprazole and chronic constipation with miralax use. but denies dysphagia, odynophagia, diarrhea or black stools. No
anticoagulation prior to admission. Last EGD/ colon 6-7 years ago in [place]. Recall polyps.
Past Medical History
Past Medical History: GERD, HTN, Hypercholesterolemia, Hypothyroidism, Psychiatric (anxiety ) and Other (von Willebrand's type 1, recent LLE fracture , colon polyps)
Past Surgical History: Appendectomy and Gynecological (hysterectomy )
Social History
Tobacco: Non-Smoker
Alcohol: None
Drug: None
Personal:
Living: Alone (in [place] but currently living with family locally )
Employment: Retired
Family History
Family History: Other (no family hx colon CA or polyps)
Allergies / Home Medications
Allergy/AdvReac Type Severity Reaction Status Date / Time
Iodinated Contrast Media Allergy Hives Verified 10/16/24 12:01
prochlorperazine Allergy Unknown Verified 10/16/24 12:01
[From Compazine]
shellfish derived Allergy Unknown Verified 10/16/24 12:01
�Medication �Instructions �Recorded
amlodipine 5 mg tablet 5 mg PO DAILY 10/16/24
levothyroxine 75 mcg tablet 75 mcg PO DAILY 10/16/24
melatonin 25 mg PO QHS 10/16/24
omeprazole 40 mg capsule,delayed 40 mg PO BID 10/16/24
release
rosuvastatin 10 mg tablet (Crestor) 10 mg PO DAILY 10/16/24
temazepam 30 mg capsule 30 mg PO HS 10/16/24
valsartan 320 mg tablet 320 mg PO DAILY 10/16/24
Review of Systems
-
History Source: Patient
Constitutional: Reports No Symptoms
EENT: Reports No Symptoms
Respiratory: Reports No Symptoms
Cardiac: Reports No Symptoms
Abdomen/GI: Reports Abdominal Pain, Constipated and Bloody Stools
: Reports No Symptoms
Musculoskeletal: Reports No Symptoms
Skin: Reports No Symptoms
Neurological: Reports Weakness
Endocrine: Reports No Symptoms
Hematologic/Lymphatic: Reports Bleeding
Vital Signs
Temp Pulse Resp BP Pulse Ox
97.7 F 78 18 116/65 98
10/23/24 07:31 10/23/24 07:31 10/23/24 07:31 10/23/24 07:31 10/23/24 07:31
Physical Exam
Exam
General: Well Developed, Well Nourished, No Apparent Distress and Comfortable
HEENT: Normocephalic and Anicteric
Respiratory: Clear
Cardiac: Regular Rhythm
GI: Soft and Tender (mild lower tenderness with palpation)
Musculoskeletal: No Clubbing and Other (LLE with walking boot )
Skin: Warm and Dry
Neuro: Awake and Alert
Psych: Calm
Results
WBC 14.2 10^3/uL (4.8-10.8) H 10/23/24 06:54
Hgb 11.5 g/dL (12.0-16.0) L 10/23/24 10:14
Hct 34.3 % (37.0-47.0) L 10/23/24 10:14
MCV 91.0 fL (81.0-99.0) 10/23/24 06:54
Plt Count 393 10^3/uL (130-400) 10/23/24 06:54
Absolute Neuts (auto) 6.7 10^3/uL (1.4-6.5) H 10/16/24 12:09
PT 13.8 Sec (11.4-14.6) 10/16/24 12:09
INR 1.01 10/16/24 12:09
APTT 29.5 Sec (23.4-35.0) 10/16/24 12:09
Sodium 138 mmol/L (135-145) 10/22/24 07:08
Potassium 4.2 mmol/L (3.5-5.1) 10/22/24 07:08
Chloride 101 mmol/L (98-107) 10/22/24 07:08
Carbon Dioxide 30 mmol/L (22-30) 10/22/24 07:08
BUN 8 mg/dl (7-17) 10/22/24 07:08
Creatinine 0.6 mg/dL (0.6-1.0) 10/22/24 07:08
Calcium 9.9 mg/dl (8.4-10.2) 10/22/24 07:08
Total Bilirubin 0.5 mg/dl (0.2-1.3) 10/20/24 06:10
AST 16 U/L (14-36) 10/20/24 06:10
ALT 12 U/L (0-35) 10/20/24 06:10
Alkaline Phosphatase 103 U/L (38-126) 10/20/24 06:10
Diagnostic Image Results:
10/13/24 CT a/p with IV contrast Severe colitis of the descending colon
10/16/24 CT a/p with IV or oral
No free air.
Limited evaluation without oral or intravenous contrast, including the descending colon.
Thickening of the wall at the descending colon and some accompanying stranding appearing slightly improved in comparison to recent prior study correlating with known colitis.
Additional stable findings, as detailed above.
10/22/24 CT a/p with IV and oral
Unfortunately, large bowel is nonopacified with oral contrast. Minimal stranding about virtually completely empty unopacified descending colon suggestive of minimal residual colitis in comparison to recent prior CT studies. No intestinal obstruction
or free air.
4 cm simple right renal cysts and additional subcentimeter low-attenuation right renal lesion too small to characterize. Small nonobstructing right renal calculus again seen.
Likely small hiatal hernia.
Prior GI Procedures:
EGD: 6-7 years ago in [place] recalls as stable
Colonoscopy: 6-7 years ago in [place] recall polyps
Assessment / Plan
-
Pt is a 84yo with hx von Willebrand's type 1, colon polyps, GERD, HTN, hyperlipidemia, hypothyroidism, recent LLQ fx, appe, hysterectomy visiting from [place] with onset of rectal bleeding. She was seen in ER 10/13 WBC15,[address] a/p with IV
contrast only with noted severe colitis in descending colon . Pt discussed plan with possible admission preferred to be discharged with plan for antibiotics if symptoms worsened. She returned 10/16 with worsening pain and inability to eat.
Repeat CT without contrast with slight improvement on 10/16 and again repeat 07/25 with minimal residual colitis. Asked to see for further management.
-left sided colitis with rectal bleeding and abdominal pain
-leukocytosis
-von Willebrands type 1
-recent LLE fracture
other med problems:
-colon polyps
-GERD
-HTN
-hyperlipidemia
-hypothyroidism
-appe
-hysterectomy
PLAN:etiology of colitis related to ischemic, infectious( stool cx neg, c-diff canceled), IBD vs other
pt feeling better with no current bleeding and pain now 4/10 with ability to tolerate diet
pt will need to consider eventual colonoscopy 6-8 weeks -- will review with Dr. Lowe proceeding locally vs in [place] where she lives
pt states she will be in [place] a few more weeks as still recovering from fracture
pt will need heme eval prior to colonoscopy as report DDAVP use prior to colonoscopy in past
cont diet as tolerated
maintain adequate perfusion, hydration with possible ischemic colitis
resume miralax daily on discharge with hx chronic constiaption
cont PPI with hx chronic GERD
-
.
-
-
Thank you for consultation and allowing me to participate in the patient's care. Please call the risk management consultant GI physician during the after hours with any questions or concerns.
--- NOTE | 2024-10-23 12:43 | W.DCSUMMARY ---
Discharge Summary
Discharge Data
Date of Admission: 10/16/24
Date of Discharge: 10/23/24
-
Pending Results: No
Hospital Course
84yo F with PMHX of vW factor deficiency, hypothyroidism, GERD, HLD, HTN, anxiety, recent LLE Fx (currently NWB) came with 1-2 days of severe bilateral abdominal pain, CT showed severe colitis of the distending colon, negative for salmonella, formed
stool but with significant hematochezia, that later resolved. Tolerated food well. Communicated to GI who attempted to schedule patient for outpatient follow up for colonoscopy, repeated Hgb in the same range as prior as per agreement with GI.
Medically stable for d/c
I have spent at least 38min reviewing chart, test results, communication with consultants and providing direct patient care
Patient was managed for:
#Hematochezia
#Descending colitis
#mild anemia
#Reactive thrombocytosis
#Fatty liver
#Non-obstructing nephrolithiasis
#recent LLE Fx
#Essential HTN
#HLD
#Hypothyroidism
#Anxiety D/O
#leukocytosis
Discharge Plan
-
Patient Disposition: Home (Routine Discharge)
Discharge Diagnosis/Procedures: COlitis
Diet: Low Residue
Additional Activity: NWB on LLE for 6 weeks
Referrals:
PRIVATE,PHYSICIAN [Family Provider] -
Dawna Mendieta MD [Active] - in four to six weeks
Prescriptions:
New
metronidazole 500 mg tablet
500 mg PO Q8H Qty: 12 0RF
cefpodoxime 200 mg tablet
200 mg PO BID Qty: 8 0RF
Continued
amlodipine 5 mg Tablet
5 mg PO DAILY
omeprazole 40 mg Capsule,Delayed Release(Dr/Ec)
40 mg PO BID
levothyroxine 75 mcg Tablet
75 mcg PO DAILY
temazepam 30 mg Capsule
30 mg PO HS
valsartan 320 mg Tablet
320 mg PO DAILY
rosuvastatin [Crestor] 10 mg Tablet
10 mg PO DAILY
melatonin 25 mg tablet
25 mg PO QHS
Discharge Orders:
Discharge Patient (As Directed); Ordered 10/23/24
Ordered By: Job Hennessy
Discharge Date and Time
Print Language: FAROESE
--- NOTE | 2024-10-23 12:53 | CM ---
CM reviewed chart, patient seen bedside, for discharge today. Patient confirms she will be discharging to her sons home today- ([facility] [phone], [address] [facility]), will be staying with her daughterLeah
Juan Luis [address] [place] [address]. [facility]- Leah cell [phone], update to [facility] with Missy. Patient reports she does no not a commode at this time, will be using a family members. IMM reviewed, signed, patient has copy. Patient reports her daughter will
provide transportation home. CM will continue to follow for all discharge planning needs.
Plan; home with son, then daughter, Missy VN, daughter to transport
[facility]
[phone]
[2024-10-23 15:47] VITALS: BP 135/62
== END 2024-10-23 17:05 | disposition home health service (06) | DRG 386 ==
LOC: 4 WEST ACU 17:54
PROVIDERS: Emergency Medicine; ADMITTING PHYSICIAN Internal Medicine; ATTENDING PHYSICIAN Internal Medicine; CONSULT PHYSICIAN Internal Medicine Gastroenterology; EMERGENCY PHYSICIAN Emergency Medicine
DX: K51.511 Left sided colitis with rectal bleeding (principal); D68.01 Von Willebrand disease, type 1; D64.9 Anemia, unspecified; D75.838 Other thrombocytosis; K76.0 Fatty (change of) liver, not elsewhere classified; N20.0 Calculus of kidney; I10 Essential (primary) hypertension; E03.9 Hypothyroidism, unspecified; F41.9 Anxiety disorder, unspecified; Z79.890 Hormone replacement therapy; E78.00 Pure hypercholesterolemia, unspecified; K21.9 Gastro-esophageal reflux disease without esophagitis; Z90.49 Acquired absence of other specified parts of digestive tract; Z91.041 Radiographic dye allergy status; Z90.710 Acquired absence of both cervix and uterus; Z79.899 Other long term (current) drug therapy; K59.09 Other constipation; N28.1 Cyst of kidney, acquired; K44.9 Diaphragmatic hernia without obstruction or gangrene; Z86.0100 Personal history of colon polyps, unspecified
CPT/HCPCS: 74176; 74177; 80048; 80053; 83735; 85014; 85018; 85025; 85027; 85610; 85730; 87045; 87046; 87427; 93005; 96361; 96365; 96375; 97162; 97167; 97530; 99285; Q9967